=== PATIENT | female | born 1960 | race Caucasian/White ===

== ENCOUNTER 2021-01-23 18:15 | Emergency (ER) | payer OTHER, BC, SELFPAY ==
--- NOTE | ~2021-01-23 | XR_ITS ---
EXAMINATION: XR wrist LT min 3V DATE: 01/23/2021 18:45 INDICATION: Left wrist swelling post injury TECHNIQUE: Posteroanterior, ulnar deviation, oblique, and lateral views of the affected wrist were ob tained. COMPARISON: none FINDINGS: Alignment is normal. No fracture. Mild osteoarthritis at the triscaphe and first carpal metacarpal sandro ints. Diffuse osteopenia. Soft tissues are unremarkable. IMPRESSION: 1. 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 No acute osseous abnormality. Reviewed, dictated and finalized at location A. MANUFACTURING COORDINATOR IMPRESSION: 1. 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 No acute osseous abn ormality.
[2021-01-23 18:36] VITALS: BP 151/84; PULSE 65; RESP 16; TEMP 36.4; O2SAT 96
[2021-01-23 18:50] VITALS: BP 151/84; PULSE 65; RESP 16; TEMP 36.4; O2SAT 96
--- NOTE | 2021-01-23 19:14 | ED.UPPEXIN ---
HPI - Extremity Injury (Upper) General Chief Complaint: Extremity Injury, Upper Stated Complaint: Left Arm Pain Time Seen by Provider: 01/23/21 19:10 Source: patient and RN notes reviewed Mode of arrival: ambulatory Limitations: no limitations History of Present Illness HPI narrative: 60 year old female presents to to [facility] care with complaints of assisting with moving a cough today at work at 1600 which was on a vinny and still in a box. She reports that she had ahold of strap and the strap broke and she fell. She reports that she tried to break her fall with her left hand and now is experiencing acute pain to the left radial wrist area and to the pbase of her thumb. Patient states that she has increased pain with attempted movement of her left wrist with some swelling noted along radial aspect of her left wrist. MD complaint: injury to: left and wrist Place: work Severity: severe Severity scale (1-10): 7 Treatments prior to arrival: cold therapy and other (OTC pain medication) Related Data Home Medications Medication Instructions Recorded Confirmed No Home Medications 01/23/21 01/23/21 Allergies Allergy/AdvReac Type Severity Reaction Status Date / Time No Known Allergies Allergy Mild Verified 08/23/11 16:51 Review of Systems Review of Systems: CONSTITUTIONAL: Denies fever, chills, or sweats. EYES: Denies visual changes, redness, or discharge. ENT: Denies rhinorrhea, congestion, sore throat, or otalgia. CARDIOVASCULAR: Denies chest pain, palpitations, or edema. RESPIRATORY: Denies cough or dyspnea. GASTROINTESTINAL: Denies abdominal pain, nausea, vomiting, or diarrhea. GENITOURINARY: Denies dysuria or hematuria. SKIN: Denies rash or itching. MUSCULOSKELETAL: Denies back pain, acute left wrist pain and base of left thumb from injury or myalgia. NEUROLOGIC: Denies headache, numbness, or weakness. PSYCHIATRIC: Denies anxiety or depression. All systems reviewed & are unremarkable except as noted in HPI and below PMFSH Past Medical History Medical History (Updated 01/26/21 @ 11:49 by Sylvia Dougherty NP) Tobacco abuse Surgical History Surgical History (Updated 01/23/21 @ 19:28 by Sylvia Dougherty NP) No history of previous surgery Family History Family History (Updated 01/26/21 @ 12:02 by Sylvia Dougherty NP) Father Acute myocardial infarction Hypertension Lung cancer Sibling Diabetes mellitus Mother Hypertension Other Heart disease Social History Social History (Updated 01/23/21 @ 19:27 by Sylvia Dougherty NP) Smoking status: Former smoker Additional smoking assessment comments: quit 6 weeks ago Alcohol intake: current Alcohol use details: social Substance use: never Living arrangements: with family Gender identity (if verbalized by the patient): Female Comments At time of signature, agree with nursing past medical, surgical, social and family history. There is no relevant family history pertinent to the presenting complaint Exam Narrative: GENERAL: Well-appearing, well-nourished, and in mild acute distress due to pain of left wrist. HEAD: Normocephalic, atraumatic. EYES: PERRLA and EOMI. ENT: Nares clear, no rhinorrhea or epistaxis. Mucous membranes moist.TM;s normal with good light reflex, throat pink with no lesions or exudates or tonsil enlargement. NECK: Supple.no lymphadenopathy CHEST: Clear to auscultation. No respiratory distress.SAO2 96% on room air HEART: Regular rate and rhythm. No murmur heard. Normal peripheral pulses. ABDOMEN: Soft, nontender, nondistended, normal active bowel sounds. EXTREMITIES: Normal range of motion. No edema, Exception noted to pain to left wrist radial aspect and pain to base of left thumb region with increased pain with movement. strong left radial pulse present, with nail beds blanching briskly to left fingers SKIN: Warm, dry, no rash. NEURO: No focal deficits. Alert and oriented x3. Course Vital Signs Vital signs:
== END 2021-01-23 19:34 | disposition home or self-care (01) ==
LOC: EXPCOLL 18:21
PROVIDERS: Emergency Provider Registered Nurse; PCP Internal Medicine
DX: S63.502A Unspecified sprain of left wrist, initial encounter (principal); S66.912A Strain of unspecified muscle, fascia and tendon at wrist and hand level, left hand, initial encounter; W19.XXXA Unspecified fall, initial encounter; Y99.0 Civilian activity done for income or pay; Z87.891 Personal history of nicotine dependence
CPT/HCPCS: 73110; 99213; G0463